=== PATIENT | female | born 1995 | race Two or more races ===

== ENCOUNTER 2024-05-26 12:35 | Outpatient (CLI) | payer OTHER | END 2024-05-26 12:39 | disposition home or self-care (01) | LOC: PRENATAL 12:35 | PROVIDERS: ATTEND Obstetrics & Gynecology Maternal & Fetal Medicine | DX: O35.3XX0 Maternal care for (suspected) damage to fetus from viral disease in mother, not applicable or unspecified (principal); O44.00 Complete placenta previa NOS or without hemorrhage, unspecified trimester; Z3A.20 20 weeks gestation of pregnancy ==

== ENCOUNTER → 2024-09-22 14:45 | Outpatient (CLI) | payer OTHER | END | disposition home or self-care (01) | LOC: PRENATAL 14:45 | PROVIDERS: ATTEND Obstetrics & Gynecology Maternal & Fetal Medicine | DX: O26.849 Uterine size-date discrepancy, unspecified trimester (principal); O36.8199 Decreased fetal movements, unspecified trimester, other fetus; Z3A.37 37 weeks gestation of pregnancy ==

== ENCOUNTER 2024-10-02 06:12 | Inpatient (IN) | payer OTHER ==
[~2024-10-02] VITALS: Ht 157.5 cm; Wt 3.2 kg
[2024-10-02 06:10] VITALS: BP 116/73
[2024-10-02] MEDS ORDERED: PRENATAL TABLE1 EAC4 PO (06:17)
[2024-10-02] MEDS ORDERED: AMPICILLIN SODIUM 2,000 MG VIAL IV ONE (06:30)
[2024-10-02] MEDS ORDERED: RINGERS SOLUTION,LACTATED 1,000 ML IV SCH (06:30)
[2024-10-02 07:31] VITALS: BP 132/83
[2024-10-02 07:46] LABS: HEMATOCRIT 35.8 % (36.0-45.00); HEMOGLOBIN 11.6 g/dL (12.0-15.00); MEAN CORPUSCULAR HEMOGLOBIN 24.3 pg (27.00-32.0); MEAN CORPUSCULAR HGB CONC 32.5 g/dl (32.0-36.0); PLATELET COUNT 244 K/uL (150-450); RED BLOOD COUNT 4.78 M/uL (4.00-6.00); RED CELL DISTRIBUTION WIDTH 16.3 % (11.5-14.5)
[2024-10-02 08:01] LABS: INR 0.96; PROTHROMBIN TIME 10.5 SECONDS (9.0-11.5)
[2024-10-02 08:40] LABS: ALBUMIN 2.6 gm/dL (3.4-5.0); BILIRUBIN TOTAL 0.68 mg/dL (0.3-1.2); CALCIUM 9.4 mg/dL (8.5-10.1); CREATININE SERUM 0.48 mg/dL (0.55-1.02); GFR 155.14; GLOBULINA 3.5 G/DL (2.4-3.5); POTASSIUM 4.5 mEq/L (3.5-5.1); TOTAL PROTEIN 6.1 gm/dL (6.4-8.2)
[2024-10-02 08:43] LABS: PH,URINE 6.5 (5.0-8.0); URINE APPEARANCE Clear; URINE BILIRRUBIN Negative (NEGATIVE); URINE BLOOD Negative; URINE COLOR Yellow; URINE GLUCOSE Negative (NEGATIVE); URINE KETONE Negative (NEGATIVE); URINE LEUKOCYTE Negative; URINE NITRATE Negative; URINE PROTEIN Negative (NEGATIVE); URINE UROBILINOGEN 0.2 E.U./dl
[2024-10-02 08:47] LABS: URINE BACTERIA 85.6 uL (0.0-1933); URINE EPITHELIAL CELLS 5.3 uL (0.0-38.8); URINE WBC 7.1 uL (0.0-23.2)
[2024-10-02 09:37] LABS: URINE CAST 0.14 uL (0.0-1.40); URINE RBC 1.3 uL (0.0-20.8)
[2024-10-02 11:06] VITALS: BP 128/83
[2024-10-02] MEDS ORDERED: AMPICILLIN SODIUM 1,000 MG VIAL IV SCH (12:00)
[2024-10-02 15:13] VITALS: BP 136/76
[2024-10-02 18:58] VITALS: BP 123/71
[2024-10-02 23:18] VITALS: BP 122/83
[2024-10-03 02:47] VITALS: BP 118/56
[2024-10-03] MEDS ORDERED: PROMETHAZINE HCL 25 MG/ML AMPUL ONE (02:49)
[2024-10-03] MEDS ORDERED: MEPERIDINE HCL/PF 25 MG/ML VIAL IV ONE ×2 (03:00→12:30)
[2024-10-03] MEDS ORDERED: PROMETHAZINE HCL 25 MG/ML AMPUL IV ONE ×3 (03:00→12:30)
[2024-10-03 07:22] VITALS: BP 119/75
[2024-10-03 15:24] VITALS: BP 125/81
[2024-10-03] MEDS ORDERED: OXYTOCIN 20 UNITS/500ML RL PIGGYBAG IV ONE (15:29)
[2024-10-03] MEDS ORDERED: OXYTOCIN 500 ML IV SCH (16:00)
[2024-10-03] MEDS ORDERED: ERYTHROMYCIN BASE OPHT 1GM EACH TUBE OP ONE (17:25)
[2024-10-03] MEDS ORDERED: OXYTOCIN 10 UNITS/ML VIAL ONE (17:25)
[2024-10-03] MEDS ORDERED: MORPHINE SULFATE 4 MG/ML CARTRIDGE IV PRN (18:30)
[2024-10-03] MEDS ORDERED: MORPHINE SULFATE 4 MG/ML VIAL IV ONE (20:30)
[2024-10-03] MEDS ORDERED: AMPICILLIN SODIUM 1,000 MG VIAL ONE (20:40)
[2024-10-03 21:29] VITALS: BP 130/74
[2024-10-04] VITALS: BP 145/84
[2024-10-04] MEDS ORDERED: OxyCODONE HCL/APAP UD (PERCOCET) PO PRN (07:45)
[2024-10-04 08:00] VITALS: BP 105/70
[2024-10-04 16:08] VITALS: BP 115/75
[2024-10-04 22:46] VITALS: BP 108/67
[2024-10-05 00:56] VITALS: BP 122/91
[2024-10-05 08:13] VITALS: BP 116/76
[2024-10-05 16:03] VITALS: BP 110/75
[2024-10-06] VITALS: BP 110/73
[2024-10-06 07:51] VITALS: BP 122/84
== END 2024-10-06 18:36 | disposition home or self-care (01) | DRG 788 ==
LOC: LDR 06:12 → OB/GYN 10-03 19:18
PROVIDERS: Obstetrics & Gynecology; ADMIT Obstetrics & Gynecology Obstetrics; ATTEND Obstetrics & Gynecology Obstetrics
PROC: 4A1HXCZ Monitoring of Products of Conception, Cardiac Rate, External Approach (ICD-10-PCS; 2024-10-02)
PROC: 10D00Z1 Extraction of Products of Conception, Low, Open Approach (ICD-10-PCS; principal; 2024-10-03 18:15)
DX: O82 Encounter for cesarean delivery without indication (principal); O62.0 Primary inadequate contractions; Z3A.38 38 weeks gestation of pregnancy; Z37.0 Single live birth